=== PATIENT | male | born 1985 | race Two or more races ===

== ENCOUNTER 2022-03-02 16:22 | Emergency (ER) | payer OTHER ==
[~2022-03-02] VITALS: Ht 177.8 cm; Wt 86.2 kg
[2022-03-02] MEDS ORDERED: TAMS0.4C PO (22:12)
[2022-03-02] MEDS ORDERED: IBU600 MG PO (22:12)
== END 2022-03-02 22:18 | disposition home or self-care (01) ==
LOC: ER 16:22
DX: N20.0 Calculus of kidney (principal); M94.0 Chondrocostal junction syndrome [Tietze]